=== PATIENT | female | born 1975 | race Caucasian/White ===

== ENCOUNTER 2016-10-15 19:03 | Emergency (ER) | payer MEDICAID ==
--- NOTE | 2016-10-15 19:04 | EDPHY ---
H & P HPI/ROS: HPI CHIEF COMPLAINT: Abdominal pain since May HISTORY OF PRESENT ILLNESS: This patient is a 41-year-old female significant past medical history for chronic fatigue syndrome, fibromyalgia, who has had lower abdominal pain chronically since May, also has recurrent urinary tract infections, she is due to see a certified income tax preparer in November 12 for colonoscopy , she presents emergency because she tells me her abdominal pain got worse today. She has not had any fever nausea vomiting. No diarrhea. The abdominal pain is located suprapubic, dull ache comes in waves, also has some left lower quadrant pain. Denies vaginal bleeding. She has had a hysterectomy. Past Medical History: Chronic fatigue syndrome, fibromyalgia, abdominal pain since May Past Surgical History: , hysterectomy, cholecystectomy Social History: Denies daily use of drugs alcohol tobacco products Family History: Noncontributory ROS REVIEW OF SYSTEMS: A comprehensive 10 point review of systems is otherwise negative aside from elements mentioned in the history of present illness. Exam Constitutional triage nursing summary reviewed, vital signs reviewed, awake/ alert. Eyes normal conjunctivae and sclera, EOMI, PERRLA. HENT normal inspection, atraumatic, moist mucus membranes, no epistaxis, neck supple/ no meningismus, no raccoon eyes. Respiratory clear to auscultation bilaterally, normal breath sounds, no respiratory distress, no wheezing. Cardiovascular rate normal, regular rhythm, no murmur, no edema, distal pulses normal. Gastrointestinal soft, mild tenderness palpation suprapubic , no rebound, no guarding, normal bowel sounds, no distension, no pulsatile mass. Genitourinary no CVA tenderness. Musculoskeletal no midline vertebral tenderness, full range of motion, no calf swelling, no tenderness of extremities, no meningismus, good pulses, neurovascularly intact. Skin pink, warm, & dry, no rash, skin atraumatic. Neurologic awake, alert and oriented x 3, AAOx3, moves all 4 extremities equally, motor intact, sensory intact, CN II-XII intact, normal cerebellar, normal vision, normal speech. Psychiatric normal mood/affect. Heme/Lymph/Immune no lymphadenopathy. Differential diagnosis includes but is not limited to and in no particular order : Cystitis, Bowel obstruction, appendicitis, diverticulitis, colitis, enteritis , perforated viscus, gastritis, GERD, esophagitis, urinary tract infection, pyelonephritis, kidney stones Medical Decision Making: Plan for this patient IV establishment, check abdominal blood work, check urinalysis. Re-evaluation: CT scan of the abdomen pelvis with IV contrast The results of the study are negative for acute inflammatory process that can explain left lower quadrant pain circumferential thickening of the transverse colon small area, this is not where she has pain, otherwise unremarkable CT scan. . The study was read by Dr. Cho. I viewed the images myself on the PACS system. [id number]: I did update this patient about her blood work, urinalysis, CT scan. I do recommend she follows up with Gastroenterology at her scheduled date of November 12 for colonoscopy. I do not have a great explanation for left lower quadrant abdominal pain. Urinalysis does not indicate a significant UTI will send a urine culture. CT scan showed a small area of her transverse colon with thickening, this will need to be evaluated colonoscopy. This does not locate where her pain is. Do not believe this is causing her any pain. She understands return emergency room she develops any worsening abdominal pain, fever, vomiting. Source: Patient - Medical/Surgical History Other PMH: FIBROMYALGIA, LUPUS, C/S, GALL BLADDER, HYST - Social History Smoking Status: Never smoked Constitutional: Initial Vital Signs Temperature (C) 37.1 C 10/15/16 19:05 Heart Rate 54 L 10/15/16 19:05 Respiratory Rate 18 10/15/16 19:05 Blood Pressure 150/68 H 10/15/16 19:05 O2 Sat (%) 97 10/15/16 19:05 O2 Delivery Mode Room Air Allergies/Adverse Reactions: cyclobenzaprine [From Flexeril] Allergy (Intermediate, Verified 10/15/16 19:23) Hypotension dicyclomine [From Bentyl] Allergy (Intermediate, Verified 10/15/16 19:23) Vomiting ketorolac [From Toradol] Allergy (Intermediate, Verified 10/15/16 19:23) Other-Enter Comments morphine Allergy (Intermediate, Verified 10/15/16 19:23) gabapentin Allergy (Verified 10/15/16 19:23) oxymorphone Allergy (Verified 10/15/16 19:23) Home Medications: Medication Instructions Recorded traMADol [Ultram 50 mg (*)] 50 mg PO Q4 #20 tab 03/31/15 Melatonin 10/15/16 Potassium 10/15/16 Medical Decision Making - Diagnostics Imaging Results: Imaging Impressions Abdomen CT 10/15/16 19:42 Impression: 1. Apparent thickening of the proximal transverse colon, which could be related to colitis or less likely underdistention or mass. If the patient's pain persists and clinical suspicion warrants, consider colonoscopy (the patient is reportedly scheduled for colonoscopy in October). 2. Constipation. 3. Borderline hepatomegaly. 4. Additional findings, as above. Message left for Bruce Stubbs M.D., on October 15, 2016 at 2031. E:ampraneeth E:dylanm - Data Points Laboratory Results: Laboratory Results 10/15/16 19:20 10/15/16 19:20 10/15/16 10/15/16 10/15/16 19:27 19:20 19:20 WBC 7.58 10^3/uL 10^3/uL (3.80-9.50) RBC 4.64 10^6/uL 10^6/uL (4.18-5.33) Hgb 13.8 g/dL g/dL (12.6-16.3) Hct 40.6 % % (38.0-47.0) MCV 87.5 fL fL (81.5-99.8) MCH 29.7 pg pg (27.9-34.1) MCHC 34.0 g/dL g/dL (32.4-36.7) RDW 12.6 % % (11.5-15.2) Plt Count 298 10^3/uL 10^3/uL (150-400) MPV 9.9 fL fL (8.7-11.7) Neut % (Auto) 62.8 % % (39.3-74.2) Lymph % (Auto) 28.6 % % (15.0-45.0) [place] % (Auto) 5.8 % % (4.5-13.0) Eos % (Auto) 2.4 % % (0.6-7.6) Baso % (Auto) 0.3 % % (0.3-1.7) Nucleat RBC Rel Count 0.0 % % (0.0-0.2) Absolute Neuts (auto) 4.76 10^3/uL 10^3/uL (1.70-6.50) Absolute Lymphs (auto) 2.17 10^3/uL 10^3/uL (1.00-3.00) Absolute Monos (auto) 0.44 10^3/uL 10^3/uL (0.30-0.80) Absolute Eos (auto) 0.18 10^3/uL 10^3/uL (0.03-0.40) Absolute Basos (auto) 0.02 10^3/uL 10^3/uL (0.02-0.10) Absolute Nucleated RBC 0.00 10^3/uL 10^3/uL (0-0.01) Immature Gran % 0.1 % % (0.0-1.1) Immature Gran # 0.01 10^3/uL 10^3/uL (0.00-0.10) Sodium 142 mEq/L mEq/L (134-144) Potassium 3.9 mEq/L mEq/L (3.5-5.2) Chloride 107 mEq/L mEq/L (97-110) Carbon Dioxide 24 mEq/l mEq/l (22-31) Anion Gap 11 mEq/L mEq/L (8-16) BUN 10 mg/dL mg/dL (7-23) Creatinine 0.6 mg/dL mg/dL (0.6-1.0) Estimated GFR > 60 Glucose 114 mg/dL H mg/dL (70-100) Calcium 9.4 mg/dL mg/dL (8.5-10.4) Total Bilirubin 0.4 mg/dL mg/dL (0.1-1.4) Conjugated Bilirubin 0.3 mg/dL mg/dL (0.0-0.5) Unconjugated Bilirubin 0.1 mg/dL mg/dL (0.0-1.1) AST 42 IU/L IU/L (14-46) ALT 37 IU/L IU/L (9-52) Alkaline Phosphatase 74 IU/L IU/L (38-126) Total Protein 7.2 g/dL g/dL (6.3-8.2) Albumin 4.1 g/dL g/dL (3.5-5.0) Lipase 77.0 IU/L IU/L (23-300) Urine Color YELLOW Urine Appearance HAZY Urine pH 5.5 (5.0-7.5) Ur Specific [place] 1.025 (1.002-1.030) Urine Protein NEGATIVE (NEGATIVE) Urine Ketones NEGATIVE (NEGATIVE) Urine Blood 1+ H (NEGATIVE) Urine Nitrate NEGATIVE (NEGATIVE) Urine Bilirubin NEGATIVE (NEGATIVE) Urine Urobilinogen 0.2 EU EU (0.2-1.0) Ur Leukocyte Esterase NEGATIVE (NEGATIVE) Urine RBC 5-10 /hpf H /hpf (0-3) Urine WBC OCCASIONAL /hpf /hpf (0-3) Ur Epithelial Cells 2+ /lpf H /lpf (NONE-1+) Urine Bacteria 2+ /hpf H /hpf (NONE SEEN) Urine Mucus 1+ /lpf /lpf (NONE-1+) Urine Glucose NEGATIVE (NEGATIVE) Medications Given: Discontinued Medications Sodium Chloride (Ns) 1,000 mls @ 0 mls/hr IV EDNOW ONE; Wide Open PRN Reason: Protocol Stop: 10/15/16 19:15 Last Admin: 10/15/16 19:30 Dose: 1,000 mls Departure - Departure Disposition: Home, Routine, Self-Care Clinical Impression: Abdominal pain Qualifiers: Abdominal location: left lower quadrant Qualified Code(s): R10.32 - Left lower quadrant pain Condition: Good Instructions: Acute Abdominal Pain (ED) Additional Instructions: 1.Return emergency room if develops worsening abdominal pain, fever, vomiting. 2. Please follow up with Gastroenterology at previously scheduled appointment. Referrals: ELIGIO HOLLAND,. [Primary Care Provider] - As per Instructions
[2016-10-15] MEDS ORDERED: NS 1,000 ML IV ONE (19:14)
[2016-10-15 19:22] VITALS: RESP 18
[2016-10-15 19:28] LABS: % IMMATURE GRANULYOCYTES 0.1 % (0.0-1.1); ABSOLUTE IMMATURE GRANULOCYTES 0.01 10^3/uL (0.00-0.10); ADD DIFF? NO; ADD MORPH? NO; ADD SCAN? NO; ATYPICAL LYMPHOCYTE FLAG 10 (0-99); FRAGMENT RBC FLAG 0 (0-99); HEMATOCRIT 40.6 % (38.0-47.0); HEMOGLOBIN 13.8 g/dL (12.6-16.3); LEFT SHIFT FLG 0 (0-99); LIPEMIA HEMOLYSIS FLAG 90 (0-99); MEAN CELL HEMOGLOBIN 29.7 pg (27.9-34.1); MEAN CELL VOLUME 87.5 fL (81.5-99.8); MEAN PLATELET VOLUME 9.9 fL (8.7-11.7); PLATELET CLUMPS FLAG 0 (0-99); PLATELET COUNT 298 10^3/uL (150-400); RED BLOOD CELL COUNT 4.64 10^6/uL (4.18-5.33); RED CELL DISTRIBUTION WIDTH 12.6 % (11.5-15.2)
[2016-10-15 19:34] LABS: COLOR YELLOW; LEUKOCYTE ESTERASE,URINE NEGATIVE (NEGATIVE); NITRITE,URINE NEGATIVE (NEGATIVE); PH,URINE 5.5 (5.0-7.5)
[2016-10-15 19:43] LABS: ALANINE AMINOTRANSFERASE 37 IU/L (9-52); ALBUMIN 4.1 g/dL (3.5-5.0); ALKALINE PHOSPHATASE 74 IU/L (38-126); ANION GAP 11 mEq/L (8-16); ASPARTATE AMINOTRANSFERASE 42 IU/L (14-46); BILIRUBIN,TOTAL 0.4 mg/dL (0.1-1.4); BILIRUBIN-CONJUGATED 0.3 mg/dL (0.0-0.5); BILIRUBIN-UNCONJUGATED 0.1 mg/dL (0.0-1.1); CALCIUM 9.4 mg/dL (8.5-10.4); CARBON DIOXIDE 24 mEq/l (22-31); CHLORIDE 107 mEq/L (97-110); CREATININE 0.6 mg/dL (0.6-1.0); GLOMERULAR FILTRATION RATE > 60; GLUCOSE 114 mg/dL (70-100); POTASSIUM 3.9 mEq/L (3.5-5.2); SODIUM 142 mEq/L (134-144); TOTAL PROTEIN 7.2 g/dL (6.3-8.2)
[2016-10-15 19:43] LABS: BACTERIA 2+ /hpf (NONE SEEN); MUCUS 1+ /lpf (NONE-1+); WBC,URINE OCCASIONAL /hpf (0-3)
[2016-10-15] MEDS ORDERED: IOPAMIDOL (ISOVUE-300) 100 ML BTL ONE (19:51)
[2016-10-15 21:44] VITALS: BP 118/67; PULSE 59; TEMP 98.6; O2SAT 96
== END 2016-10-15 21:43 | disposition home or self-care (01) ==
LOC: CED 19:03
DX: R10.32 Left lower quadrant pain (principal); E86.9 Volume depletion, unspecified; Z90.710 Acquired absence of both cervix and uterus; Z90.49 Acquired absence of other specified parts of digestive tract
CPT/HCPCS: 74177-PO; 80048-PO; 80076-PO; 81003-PO; 81015-PO; 83690-PO; 85025-PO; Q9967